=== PATIENT | female | born 1995 | race Caucasian/White ===

== ENCOUNTER 2018-09-19 13:30 | Outpatient (REF) | payer OTHER, SELFPAY ==
[2018-09-20 14:13] LABS: Chlamydia Result Negative; GC Result Negative; Specimen Description URINE
== END 2018-09-19 13:50 ==
LOC: LBN 13:30
PROVIDERS: PCP Family Medicine; Visit Provider Nurse Practitioner Family
DX: Z11.3 Encounter for screening for infections with a predominantly sexual mode of transmission (principal)
CPT/HCPCS: 87491; 87591